=== PATIENT | male | born 1980 | race Caucasian/White ===

== ENCOUNTER 2020-08-29 16:00 | Outpatient (CLI) | payer OTHER, SELFPAY | END 2020-08-29 16:01 | disposition home or self-care (01) | LOC: ANHCOVIDVC 16:00 | PROVIDERS: PCP Internal Medicine | DX: Z23 Encounter for immunization (principal) | CPT/HCPCS: 0001A; 91300 ==

== ENCOUNTER 2020-09-19 15:50 | Outpatient (CLI) | payer OTHER, SELFPAY | END 2020-09-19 15:51 | disposition home or self-care (01) | LOC: ANHCOVIDVC 15:50 | PROVIDERS: PCP Internal Medicine | DX: Z23 Encounter for immunization (principal) | CPT/HCPCS: 0002A; 91300 ==

== ENCOUNTER 2022-12-11 12:12 | Outpatient (CLI) | payer OTHER, SELFPAY ==
--- NOTE | ~2022-12-11 | XR_ITS ---
Left Knee Technique: AP, lateral, and sunrise views were obtained. Clinical History: Injury Findings: No fracture or dislocation is seen. Osseous alignment is anatomic. Joint spaces are preserv ed without degenerative or erosive change. Soft tissues are unremarkable. No joint effusion is seen. Impression: Unremarkable left knee radiographs. Reviewed, dictated and finalized at location . Impression: Unremarkable left knee radiographs.
== END 2022-12-11 12:13 ==
LOC: GOSHIMG 12:14
PROVIDERS: PCP Internal Medicine; Visit Provider Clinical Nurse Specialist
DX: M25.562 Pain in left knee (principal)
CPT/HCPCS: 73562

== ENCOUNTER 2022-12-15 12:46 | Outpatient (CLI) | payer OTHER, SELFPAY ==
--- NOTE | ~2022-12-15 | MR_ITS ---
MRI of the left knee Clinical history: Injury Technique: Coronal proton density and proton density-weighted images, sagittal proton-density and T2 fat-sat images, and axial proton-density fat-saturated images were acquired. Findings: Anterior and posterior cruciate ligaments are intact. Medial collateral ligament and the la teral collateral ligament complex are intact. Popliteus tendon is intact. Medial and lateral menisci are intact, without evidence of tear. There is mild chondromalacia patella. There is extensive marrow edema in the lateral femoral condyle region without distinct fracture. Extensor mechanism is intact. Small joint effusion present. There is a ganglion cyst within the media l gastrocnemius muscle belly, with multiple small septations, measuring 2.6 cm in length. Impression: Extensive marrow edema in the lateral femoral condyle is most compatible with bone contusion, presuma michael from a direct impaction injury. No ligamentous injury or meniscal tear identified. 2.6 cm multiseptated ganglion cyst which appears to be within the medial gastrocnemius muscle belly. Mild chondromalacia patella. Reviewed, dictated and finalized at [facility]. Impression: Extensive marrow edema in the lateral femoral condyle is most compatible with b one contusion, presumably from a direct impaction injury. No ligamentous injury or meniscal tear identified. 2.6 cm multiseptated ganglion cyst which appears to be within the medial gastro cnemius muscle belly. Mild chondromalacia patella.
== END 2022-12-15 12:47 ==
PROVIDERS: PCP Clinical Nurse Specialist; Visit Provider Clinical Nurse Specialist
DX: S89.90XA Unspecified injury of unspecified lower leg, initial encounter (principal); X58.XXXA Exposure to other specified factors, initial encounter
CPT/HCPCS: 73721

== ENCOUNTER → 2023-07-07 10:18 | Outpatient (CLI) | payer OTHER, SELFPAY ==
--- NOTE | ~2023-07-07 | XR_ITS ---
EXAMINATION: [id number] DATE: 07/07/2023 10:38 INDICATION: Cervical radiculopathy. Mid neck pain. TECHNIQUE: 4 views of cervical spine were obtained. COMPARISON: Cervical spine radiographs 05/13/2004 FINDINGS: There is 7 degrees levocurvature of cervical spine. Vertebral body heights are normal. Ther e is mildly decreased disc height at C5-C6. There is multilevel mild facet joint osteoarthritis. Ther e is mild central canal stenosis at C4-C5 and C5-C6. No prevertebral soft tissue swelling. IMPRESSION: 1. Mild cervical spondylosis. Reviewed, dictated and finalized at location [facility]
== END ==
PROVIDERS: PCP Clinical Nurse Specialist; Visit Provider Clinical Nurse Specialist
DX: M47.22 Other spondylosis with radiculopathy, cervical region (principal)
CPT/HCPCS: 72040